=== PATIENT | female | born 2000 | race Hispanic/Latino ===

== ENCOUNTER 2022-03-14 13:36 | Emergency (ER) | payer MEDICAID ==
[~2022-03-14] VITALS: Ht 157.5 cm; Wt 74.8 kg
[2022-03-14 13:39] VITALS: BP 122/81
[2022-03-14] MEDS ORDERED: LIDOCAINE/PRILOCAINE CREAM 5GM TUBE TP SCH (14:00)
[2022-03-14] MEDS ORDERED: ACETAMINOPHEN 500 MG TABLET PO ONE (14:00)
[2022-03-14] MEDS ORDERED: IBUPROFEN 600 MG TABLET PO ONE (14:00)
[2022-03-14 14:09] LABS: BASOPHILS % (AUTO) 0.2 % (0.0-5.0); HEMATOCRIT 34.8 % (36-48); LYMPHOCYTES % (AUTO) 9.7 % (21.0-51.0); MEAN CORPUSCULAR HEMOGLOBIN 25.7 pg (27.0-33.0); MEAN CORPUSCULAR HGB CONC 32.8 g/dL (32.0-36.0); MEAN CORPUSCULAR VOLUME 78.4 fL (80-100); MONOCYTES % (AUTO) 9.3 % (3.0-13.0); NEUTROPHILS % (AUTO) 80.5 % (40.0-77.0); PLATELET COUNT (AUTO) 219 K/uL (130-400); RED BLOOD CELL COUNT(AUTO) 4.44 MIL/uL (4.00-5.50); RED CELL DISTRIBUTION WIDTH 13.2 % (11.0-15.5); WHITE BLOOD COUNT (AUTO) 12.1 K/uL (4.8-10.8)
[2022-03-14 14:18] LABS: APPEARANCE,URINE CLEAR (CLEAR); BILIRUBIN,URINE NEGATIVE (NEGATIVE); COLOR,URINE LIGHT-YELLOW (YELLOW); GLUCOSE, URINE (UA) NEGATIVE (NEGATIVE); KETONES,URINE >=80 mg/dL (NEGATIVE); LEUKOCYTE ESTERASE ,URINE NEGATIVE Leu/uL (NEGATIVE); NITRATE,URINE NEGATIVE (NEGATIVE); PROTEIN,URINE NEGATIVE (NEGATIVE); UROBILINOGEN,URINE 0.2 mg/dL (0.2-1.0)
[2022-03-14 14:22] LABS: ALBUMIN 3.7 g/dL (3.5-5.0); CREATININE 0.7 mg/dL (0.5-1.5); TOTAL PROTEIN, SERUM 7.8 g/dL (6.0-8.3)
[2022-03-14 14:28] LABS: HCG,QUALITATIVE URINE NEGATIVE (NEGATIVE)
[2022-03-14 14:43] LABS: BACTERIA,URINE RARE /HPF (None Seen); MUCUS,URINE RARE LPF (None Seen); SQUAMOUS EPITHELIAL CELL,UR RARE /HPF (0-2); WBC,URINE 0-1 /HPF (0-1)
[2022-03-14] MEDS ORDERED: IBUP-2070 PO (14:51)
[2022-03-14] MEDS ORDERED: ACET-66 PO (14:51)
[2022-03-14] MEDS ORDERED: OSEL75 PO (14:51)
[2022-03-14] MEDS ORDERED: OSELTAMIVIR PHOSPHATE 75 MG CAP PO SCH (15:00)
== END 2022-03-14 15:18 | disposition home or self-care (01) ==
LOC: EDH 13:36
DX: J10.1 Influenza due to other identified influenza virus with other respiratory manifestations (principal); N76.6 Ulceration of vulva; Z20.822 Contact with and (suspected) exposure to COVID-19
CPT/HCPCS: 99284; 87635; 80053; 85025; 87804 ×2; 83605; 87486; 81001; 81025; 36415; 87798; C9803; J3490; 87797

== ENCOUNTER 2022-03-18 16:31 | Emergency (ER) | payer MEDICAID ==
[~2022-03-18] VITALS: Ht 157.5 cm; Wt 68.0 kg
[~2022-03-18 16:31] MED LIST: ACET-66 PO; IBUP-2070 PO; OSEL75 PO
[2022-03-18] MEDS ORDERED: CEFTRIAXONE 500MG VIAL IM STA (17:31)
[2022-03-18] MEDS ORDERED: VALA10002 PO (17:40)
[2022-03-18] MEDS ORDERED: IBUP-1493 PO (17:40)
[2022-03-18] MEDS ORDERED: CEFTRIAXONE 500MG VIAL ONE (17:45)
[2022-03-18] MEDS ORDERED: AZITHROMYCIN 250 MG TABLET PO ONE ×2 (17:45→18:00)
[2022-03-18] MEDS ORDERED: LIDOCAINE HCL 2% VISCOUS 15 ML UDCUP ONE (17:46)
[2022-03-18] MEDS ORDERED: LIDOCAINE HCL-MPF 2% 5ML VIAL ONE (17:48)
[2022-03-18 18:02] VITALS: BP 132/78
== END 2022-03-18 18:05 | disposition home or self-care (01) ==
LOC: EDH 16:31
DX: A60.00 Herpesviral infection of urogenital system, unspecified (principal)
CPT/HCPCS: 99283; 96372; J3490; J0696